=== PATIENT | male | born 1995 | race American Indian/Alaskan Native ===

== ENCOUNTER 2021-01-26 10:16 | Emergency (ER) | payer SELFPAY ==
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
[2021-01-26 11:46] VITALS: BP 104/62
== END 2021-01-26 11:47 | disposition home or self-care (01) ==
LOC: ED 10:16
DX: S50.11XA Contusion of right forearm, initial encounter (principal); V87.7XXA Person injured in collision between other specified motor vehicles (traffic), initial encounter; Y93.89 Activity, other specified; Y92.488 Other paved roadways as the place of occurrence of the external cause; Y99.8 Other external cause status
CPT/HCPCS: 99282